=== PATIENT | male | born 1945 | race Caucasian/White ===

== ENCOUNTER 2018-11-24 06:27 | Day surgery (SDC) ==
[2018-11-24] MEDS: BETADINE OPTH PREP OP PRN ×2 (06:45→07:48)
[2018-11-24] MEDS: TETRACAINE 0.5% UNIT-DOSE OP PRN ×2 (06:45→07:45)
[2018-11-24] MEDS: CYCLOGYL 2% OPTH OP PRN ×3 (06:46→06:56)
[2018-11-24] MEDS ORDERED: LIDOCAINE 1%/PHENYLEPHRINE 1.5% BSS (SURGERY) INTRAOCULA ONE (06:56)
[2018-11-24] MEDS ORDERED: DEX-MOXI-KETOR OPTH INJ 1/0.5/0.4 MG/ML IO ONE (06:56)
[2018-11-24] MEDS ORDERED: BSS WITH EPINEPHRINE OP ONE (06:56)
[2018-11-24] MEDS ORDERED: ZOFRAN 4 MG/2 ML IVP ONE (06:56)
[2018-11-24] MEDS ORDERED: LIDOCAINE 1% 20 ML MDV ID STA (06:56)
[2018-11-24 07:01] VITALS: TEMP 97.6
[2018-11-24] MEDS ORDERED: SUBLIMAZE ONE (07:46)
[2018-11-24] MEDS ORDERED: DIPRIVAN 20 ML VIAL IVP ONE (07:46)
[2018-11-24] MEDS ORDERED: VERSED ONE (07:46)
[2018-11-30 12:40] VITALS: BP 128/63
== END 2018-11-24 08:45 | disposition home or self-care (01) ==
LOC: SURG 06:27
PROVIDERS: ATTEND Ophthalmology
DX: H25.12 Age-related nuclear cataract, left eye (principal)

== ENCOUNTER 2018-12-08 06:17 | Day surgery (SDC) ==
[2018-12-08] MEDS: TETRACAINE 0.5% UNIT-DOSE OP PRN ×2 (06:20→06:53)
[2018-12-08] MEDS: BETADINE OPTH PREP OP PRN ×2 (06:21→06:55)
[2018-12-08] MEDS: CYCLOGYL 2% OPTH OP PRN ×3 (06:22→06:32)
[2018-12-08 06:44] VITALS: TEMP 98.6
[2018-12-08] MEDS ORDERED: BSS WITH EPINEPHRINE OP ONE (06:45)
[2018-12-08] MEDS ORDERED: LIDOCAINE 1%/PHENYLEPHRINE 1.5% BSS (SURGERY) INTRAOCULA ONE (06:45)
[2018-12-08] MEDS ORDERED: ZOFRAN 4 MG/2 ML IVP ONE (06:45)
[2018-12-08] MEDS ORDERED: DEX-MOXI-KETOR OPTH INJ 1/0.5/0.4 MG/ML IO ONE (06:45)
[2018-12-08] MEDS ORDERED: ZOFRAN 4 MG/2 ML ONE (07:00)
[2018-12-08] MEDS ORDERED: VERSED ONE (07:00)
[2018-12-08] MEDS ORDERED: SUBLIMAZE ONE (07:00)
[2018-12-08 08:27] VITALS: BP 95/64
== END 2018-12-08 08:00 | disposition home or self-care (01) ==
LOC: SURG 06:17
PROVIDERS: ATTEND Ophthalmology
DX: H25.11 Age-related nuclear cataract, right eye (principal)